=== PATIENT | male | born 1970 | race Caucasian/White ===

== ENCOUNTER 2019-12-01 00:04 | Emergency (ER) | payer OTHER ==
[~2019-12-01] VITALS: Ht 170.2 cm; Wt 109.1 kg
[2019-12-01 00:05] VITALS: BP 125/101; PULSE 96; TEMP 98.1
[2019-12-01 00:46] LABS: BASO # 0.1 (0.0-0.2); BASO % 0.5 % (0.0-2.0); EOS # 0.1 (0.0-0.7); EOS % 0.5 % (0-4.0); GRAN # 10.6 (1.4-6.5); GRAN % 79.5 % (42.2-75.2); HEMATOCRIT 41.9 % (42.0-52.0); HEMOGLOBIN 14.3 g/dl (13.5-18.0); LYMPH # 1.7 (1.2-3.4); LYMPH % 13.1 % (20.0-51.0); MEAN CELL VOLUME 89 fl (80.0-100.0); MEAN CORPUSCULAR HEMOGLOBIN 30 pg (27.0-31.0); MEAN CORPUSCULAR HGB CONC 34 g/dl (33.0-37.0); MEAN PLATELET VOLUME 11.1 fl (7.4-10.4); MONO # 0.7 (0.1-0.6); MONO % 5.4 % (1.7-9.3); PLATELET COUNT 243 K/mm3 (130-400); RED BLOOD COUNT 4.73 M/mm3 (4.20-5.60); REDCELL DISTRIBUTION WIDTH-CV 11.9 % (11.5-14.5)
[2019-12-01 01:00] LABS: ALBUMIN 4.2 gm/dL (3.5-5.0); BILIRUBIN,TOTAL 0.8 mg/dL (0.0-1.0); CALCIUM 9.1 mg/dL (8.4-10.2); CREATININE, serum 1.25 (0.66-1.25); TOTAL PROTEIN 7.2 gm/dL (6.4-8.2)
[2019-12-01] MEDS ORDERED: CEPHALEXIN500 M1 PO (04:33)
== END 2019-12-01 04:45 | disposition home or self-care (01) ==
LOC: COL.ER 00:04
PROVIDERS: Emergency Medicine
DX: S01.01XA Laceration without foreign body of scalp, initial encounter (principal); S22.081A Stable burst fracture of T11-T12 vertebra, initial encounter for closed fracture; S40.812A Abrasion of left upper arm, initial encounter; Z23 Encounter for immunization; V89.2XXA Person injured in unspecified motor-vehicle accident, traffic, initial encounter
CPT/HCPCS: J1170; J1885; J7030; Q9967

== ENCOUNTER 2019-12-04 03:03 | Emergency (ER) | payer OTHER ==
[~2019-12-04] VITALS: Ht 172.7 cm; Wt 86.4 kg
[~2019-12-04 03:03] MED LIST: CEPHALEXIN500 M1 PO
[2019-12-04 03:14] VITALS: TEMP 98
[2019-12-04] MEDS ORDERED: FLEXERIL 1010 MG/TAB PO (03:40)
[2019-12-04] MEDS ORDERED: NORCO 325 MG-51 TAB PO (03:40)
[2019-12-04 04:15] VITALS: BP 119/81; PULSE 94
== END 2019-12-04 04:23 | disposition home or self-care (01) ==
LOC: COL.ER 03:03
DX: S22.081A Stable burst fracture of T11-T12 vertebra, initial encounter for closed fracture (principal); S70.12XA Contusion of left thigh, initial encounter; Z88.1 Allergy status to other antibiotic agents; V89.2XXA Person injured in unspecified motor-vehicle accident, traffic, initial encounter